=== PATIENT | female | born 1960 | race Caucasian/White ===

== ENCOUNTER 2020-04-22 16:39 | Inpatient (IN) | payer MEDICARE, OTHER ==
[~2020-04-22] VITALS: Ht 175.3 cm; Wt 80.0 kg
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
[2020-04-22] MEDS ORDERED: SODIUM CHLORIDE FLUSH 10ML SYR IVF ONE (17:30)
[2020-04-22 17:42] LABS: BASOPHILS % (AUTO) 1 % (0-1); EOSINOPHILS % (AUTO) 1 % (1-7); LYMPHOCYTES % (AUTO) 21 % (22-44); MD NO; MEAN CORPUSCULAR HEMOGLOBIN 33.1 pg (27.0-34.8); MEAN CORPUSCULAR HGB CONC 33.7 g/dL (32.4-35.8); MEAN PLATELET VOLUME 7.7 fL (7.4-10.4); MONOCYTES % (AUTO) 8 % (2-9); NEUTROPHILS % (AUTO) 69 % (42-75); PLATELET COUNT 271 x10^3/uL (130-400); RED BLOOD COUNT 3.99 x10^6/uL (3.82-5.3); RED CELL DISTRIBUTION WIDTH 12.9 % (9.6-15.2)
[2020-04-22] MEDS ORDERED: HYDROmorphone 1 MG/ML, 1ML INJ ONE ×2 (17:43→21:00)
[2020-04-22] MEDS: HYDROmorphone 1 MG/ML, 1ML INJ IVPush PRN ×2 (17:45→21:03)
[2020-04-22 17:53] LABS: ALANINE AMINOTRANSFERASE 30 U/L (12-78); ALBUMIN 3.4 g/dL (3.4-5.0); ANION GAP 7 mmol/L (5-15); CALCIUM 8.6 mg/dL (8.5-10.1); CHLORIDE 110 mmol/L (98-107); CREATININE 0.85 mg/dL (0.55-1.02)
[2020-04-22 17:55] LABS: ALKALINE PHOSPHATASE 83 U/L (45-117); BILIRUBIN,TOTAL 0.3 mg/dL (0.2-1.0); TOTAL PROTEIN 6.7 g/dL (6.4-8.2)
--- NOTE | 2020-04-22 18:18 | NUR ---
PRECEPTOR RN: PT GOING TO MRI
--- NOTE | 2020-04-22 18:53 | NUR ---
REPORT FROM DIMA LAMBERT. PT AT MRI.
[2020-04-22] MEDS ORDERED: GADOTERATE 7.5 MMOL/15ML SYR ONE (19:05)
--- NOTE | 2020-04-22 19:30 | NUR ---
PT BACK FROM MRI. PT RESTING WITH NO NEEDS AT THIS TIME. VSS. CALL LIGHT IN REACH
[2020-04-22] MEDS ORDERED: DEXAMETHASONE 4 MG/ML, 1ML ONE (20:12)
--- NOTE | 2020-04-22 20:27 | NUR ---
pt medicated with decadron. vss. friend at bedside. waiting for neurosurg eval. call light in reach
[2020-04-22] MEDS ORDERED: DEXAMETHASONE 4 MG/ML, 1ML IVPush ONE (20:30)
[2020-04-22] MEDS ORDERED: NICOTINE 21 MG/24 HR PATCH.TD24 ONE (21:00)
[2020-04-22] MEDS ORDERED: SODIUM CHLORIDE FLUSH 10ML SYR IVF PRN (21:00)
[2020-04-22] MEDS ORDERED: NICOTINE 21 MG/24 HR PATCH.TD24 TD ONE (21:00)
--- NOTE | 2020-04-22 21:16 | NUR ---
PT MEDICATED FOR PAIN. PT GIVEN A SANDWICH OK PER ERP. VSS. CALL LIGHT IN REACH
[2020-04-22] MEDS ORDERED: MAGN300C PO (21:25)
[2020-04-22] MEDS ORDERED: BACL-19 PO (21:25)
[2020-04-22] MEDS ORDERED: HYDR12.517 PO (21:25)
[2020-04-22] MEDS ORDERED: FAMO20TA7 PO (21:25)
[2020-04-22] MEDS ORDERED: VITA-66 PO (21:25)
[2020-04-22] MEDS ORDERED: MULT-658 PO (21:25)
[2020-04-22] MEDS ORDERED: GABA-827 PO (21:25)
[2020-04-22] MEDS ORDERED: PANT40TA3 PO (21:25)
[2020-04-22] MEDS ORDERED: ESOM20CA PO (21:25)
[2020-04-22] MEDS ORDERED: POTA10TA5 PO (21:25)
[2020-04-22] MEDS ORDERED: TOPI50TA35 PO (21:25)
[2020-04-22] MEDS ORDERED: SENN15TA PO (21:26)
[2020-04-22 22:27] VITALS: BP 102/70
[2020-04-22] MEDS ORDERED: PROMETHAZINE 25 MG/ML, 1ML IM PRN (23:00)
[2020-04-22] MEDS ORDERED: hydrALAzine 20 MG/ML, 1ML IVPush PRN (23:00)
[2020-04-22] MEDS ORDERED: ONDANSETRON ODT 4 MG PO PRN (23:00)
[2020-04-22] MEDS ORDERED: DEXAMETHASONE 4 MG/ML, 1ML IVPush SCH (23:00)
[2020-04-22] MEDS ORDERED: ACETAMINOPHEN 325 MG TABLET PO PRN (23:00)
[2020-04-22] MEDS ORDERED: SODIUM CHLORIDE 0.9% 1,000 ML IV SCH (23:00)
[2020-04-22] MEDS ORDERED: ONDANSETRON 2MG/ML, 2ML IVPush PRN (23:00)
[2020-04-22] MEDS ORDERED: POTASSIUM CHLORIDE 40 MEQ in SODIUM CHLORIDE 0.9% 500 ML IV ONE (23:00)
[2020-04-22] MEDS ORDERED: POLYETHYLENE GLYCOL 17 GM PACKET PO PRN (23:00)
[2020-04-22] MEDS ORDERED: BISACODYL 10 MG SUPP PR PRN (23:00)
[2020-04-22] MEDS: BACLOFEN 10 MG TABLET PO SCH (23:11)
[2020-04-22] MEDS: TOPIRAMATE 25 MG TABLET PO SCH (23:12)
[2020-04-22] MEDS: GABAPENTIN 400 MG CAPSULE PO SCH (23:12)
[2020-04-22] MEDS: morphine SULFATE 10 MG/ML, 1ML IVPush PRN (23:20)
[2020-04-22] MEDS ORDERED: ENOXAPARIN 40 MG/0.4 ML SQ SCH (23:30)
[2020-04-22] MEDS ORDERED: NICOTINE 14MG/24 HR PATCH.TD24 TD SCH (23:30)
[2020-04-22] MEDS: HYDROcodone/APAP 5/325 TABLET PO PRN (23:56)
[2020-04-23] MEDS ORDERED: CLON1TAB11 PO (00:30)
[2020-04-23 02:00] VITALS: BP 113/71
[2020-04-23] MEDS: morphine SULFATE 10 MG/ML, 1ML IVPush PRN ×4 (04:12→16:25)
[2020-04-23] MEDS: HYDROcodone/APAP 5/325 TABLET PO PRN (05:13)
[2020-04-23 06:00] LABS: BASOPHILS % (AUTO) 1 % (0-1); EOSINOPHILS % (AUTO) 0 % (1-7); LYMPHOCYTES % (AUTO) 13 % (22-44); MEAN CORPUSCULAR HEMOGLOBIN 33.2 pg (27.0-34.8); MEAN CORPUSCULAR HGB CONC 34.7 g/dL (32.4-35.8); MEAN PLATELET VOLUME 7.6 fL (7.4-10.4); MONOCYTES % (AUTO) 2 % (2-9); NEUTROPHILS % (AUTO) 85 % (42-75); PLATELET COUNT 252 x10^3/uL (130-400); RED BLOOD COUNT 3.92 x10^6/uL (3.82-5.3); RED CELL DISTRIBUTION WIDTH 13.3 % (9.6-15.2)
[2020-04-23 06:02] LABS: ALBUMIN 3.3 g/dL (3.4-5.0); ANION GAP 5 mmol/L (5-15); CALCIUM 9.1 mg/dL (8.5-10.1); CHLORIDE 112 mmol/L (98-107)
[2020-04-23 06:12] LABS: ALANINE AMINOTRANSFERASE 25 U/L (12-78); ALKALINE PHOSPHATASE 84 U/L (45-117); BILIRUBIN,TOTAL 0.2 mg/dL (0.2-1.0); CHOL/HDL RATIO 2.5; CHOLESTEROL, TOTAL 153 mg/dL (140-239); CREATININE 0.71 mg/dL (0.55-1.02); HDL CHOL % 41 % (28-40); HDL CHOLESTEROL (DIRECT) 62 mg/dL (40-60); LDL CHOLESTEROL,CALCULATED 77 mg/dL (54-169); LDL/HDL RATIO 1.2 (0.5-3.0); TOTAL PROTEIN 6.4 g/dL (6.4-8.2); TRIGLYCERIDES 69 mg/dL (50-200); VLDL CHOLESTEROL 14 mg/dL (0-25)
[2020-04-23 06:20] LABS: MD NO
[2020-04-23] MEDS ORDERED: DEXAMETHASONE 4 MG/ML, 1ML IVPush SCH (07:30)
[2020-04-23] MEDS ORDERED: OXYcodone IR 5MG TABLET PO PRN (07:30)
[2020-04-23 08:55] VITALS: BP 113/78
[2020-04-23] MEDS: GABAPENTIN 400 MG CAPSULE PO SCH ×2 (09:00→16:25)
[2020-04-23] MEDS ORDERED: SENNA/DOCUSATE TABLET PO SCH (09:00)
[2020-04-23] MEDS ORDERED: PANTOPRAZOLE 40MG TABLET PO SCH (09:00)
[2020-04-23] MEDS ORDERED: MULTIVITAMIN 1 TABLET PO SCH (09:00)
[2020-04-23] MEDS: ACETAMINOPHEN 325 MG TABLET PO SCH ×2 (09:00→12:56)
[2020-04-23] MEDS ORDERED: HYDROCHLOROTHIAZIDE 12.5 MG CAPSULE PO SCH (09:00)
[2020-04-23] MEDS ORDERED: POTASSIUM CHLORIDE 10 MEQ TABLET.ER PO SCH (09:00)
[2020-04-23] MEDS: LACTOBACILLUS CHEW TABLET PO SCH ×2 (09:00→16:25)
[2020-04-23] MEDS: BACLOFEN 10 MG TABLET PO SCH ×2 (09:01→16:24)
[2020-04-23] MEDS: TOPIRAMATE 25 MG TABLET PO SCH ×2 (09:01→16:24)
[2020-04-23 12:45] LABS: INTERNATIONAL NORMALIZED RATIO 0.96 (0.93-1.1); PROTHROMBIN TIME 10.3 Seconds (9.6-11.5)
[2020-04-23 13:07] VITALS: BP 99/63
[2020-04-23] MEDS ORDERED: SODIUM CHLORIDE 0.9% 1,000 ML IV SCH (23:00)
== END 2020-04-23 17:23 | disposition home or self-care (01) | DRG 552 ==
LOC: ED 17:57 → EDIP 21:02 → 3N 22:19
PROVIDERS: ADMIT Internal Medicine; ATTEND Internal Medicine
DX: M48.061 Spinal stenosis, lumbar region without neurogenic claudication (principal); M54.16 Radiculopathy, lumbar region; E87.6 Hypokalemia; F17.210 Nicotine dependence, cigarettes, uncomplicated; F41.9 Anxiety disorder, unspecified; G89.29 Other chronic pain; I10 Essential (primary) hypertension; K21.9 Gastro-esophageal reflux disease without esophagitis; R26.2 Difficulty in walking, not elsewhere classified; R53.81 Other malaise; Z98.1 Arthrodesis status; Z88.5 Allergy status to narcotic agent; Z20.822 Contact with and (suspected) exposure to COVID-19
CPT/HCPCS: 36415; 72100; 72131; 72158; 80053; 80061; 83036; 83735; 84100; 84439; 84443; 85025; 85610; 85730; 93005; 96374; 96375; 96376; 99285; G0378; J1100; J1170; J1650; J3480; A9575; J2270; J7030; J7040; U0003

== ENCOUNTER 2020-10-05 02:12 | Emergency (ER) | payer MEDICARE ==
[~2020-10-05] VITALS: Ht 175.3 cm; Wt 70.0 kg
[~2020-10-05 02:12] MED LIST: BACL-19 PO; CARI350T PO; CLON1TAB11 PO; ESOM20CA PO; FAMO20TA7 PO; GABA-827 PO; GLUC1CAP40 PO; HYDR12.517 PO; IBUP-1223 PO; LORA10CA PO; MAGN300C PO; MULT-658 PO; OXYC-307 PO; OXYC10TA47 PO; PANT40TA3 PO; POTA10TA5 PO; QUET50TA5 PO; SENN15TA PO; TOPI100T24 PO; TOPI50TA35 PO; VITA-66 PO; vitamin b12 IM
--- NOTE | 2020-10-05 02:24 | NUR ---
PT BIB [facility] FOR FALL DOWN THE STAIRS. PT DENIES HEAD TRAUMA, NO LOC, AND NOT ON BLOOD THINNERS. PT REPORTS RIGHT UPPER BACK PAIN. PT CONNECTED TO MONITORS. SERGIO. VSS
--- NOTE | 2020-10-05 02:41 | NUR ---
PT TO XRAY
[2020-10-05] MEDS ORDERED: IBUPROFEN 800 MG TABLET PO ONE (03:30)
[2020-10-05] MEDS ORDERED: IBUPROFEN 800 MG TABLET ONE (03:34)
[2020-10-05 03:58] VITALS: BP 127/81
--- NOTE | 2020-10-05 04:51 | NUR ---
PT AMBULATES WITHOUT ASSISTANCE.
== END 2020-10-05 04:53 | disposition home or self-care (01) ==
LOC: ED 03:00
DX: S29.012A Strain of muscle and tendon of back wall of thorax, initial encounter (principal); R07.89 Other chest pain; I10 Essential (primary) hypertension; F17.200 Nicotine dependence, unspecified, uncomplicated; W01.0XXA Fall on same level from slipping, tripping and stumbling without subsequent striking against object, initial encounter; Y93.89 Activity, other specified; Y92.009 Unspecified place in unspecified non-institutional (private) residence as the place of occurrence of the external cause; Y99.8 Other external cause status
CPT/HCPCS: 72072; 99284